=== PATIENT | male | born 1970 | race African-American/Black ===

== ENCOUNTER 2017-08-10 06:03 | Emergency (ER) | payer OTHER ==
[~2017-08-10] VITALS: Ht 170.2 cm; Wt 62.0 kg
[2017-08-10] MEDS ORDERED: KETOROLAC 60MG/2ML VIAL IM ONE (09:30)
[2017-08-10 11:00] VITALS: BP 136/83
== END 2017-08-10 11:16 | disposition home or self-care (01) ==
LOC: ER 06:03
DX: M54.40 Lumbago with sciatica, unspecified side (principal)
CPT/HCPCS: 96372; 99283; J1885